=== PATIENT | female | born 1960 | race Caucasian/White ===

== ENCOUNTER → 2016-06-10 | Outpatient (CLI) | payer OTHER ==
--- NOTE | 2016-06-10 09:41 | MM ---
Reason for exam: follow-up at short interval from prior study. Last mammogram was performed 6 months ago. History: Patient is postmenopausal and is nulliparous. Took progesterone for 2 years beginning at age 44. Physical Findings: Nurse did not find any significant physical abnormalities on exam. MG Diagnostic Mammo RT w CAD CC, MLO, and LM view(s) were taken of the right breast. Prior study comparison: December 11, 2015, right breast MG work up mamm w CAD RT. December 02, 2015, bilateral MG screening mammo w CAD. November 28, 2014, bilateral MG screening mammo w CAD. November 21, 2013, bilateral MG diagnostic mammo w CAD GIOVANNY. The breast tissue is heterogeneously dense. This may lower the sensitivity of mammography. The previously seen medial asymmetry not apparent on the current exam. Additional precautionary 6 month follow up recommended. These results were verbally communicated with the patient and result sheet given to the patient on 06/10/16. ASSESSMENT: Probably benign, BI-RAD 3 RECOMMENDATION: Follow-up diagnostic mammogram of both breasts in 6 months. Back on schedule for November 2016.
== END | disposition home or self-care (01) ==
LOC: RADMAMWWP 08:34
PROVIDERS: ATTEND Family Medicine
DX: R92.8 Other abnormal and inconclusive findings on diagnostic imaging of breast (principal)

== ENCOUNTER → 2017-12-27 | Outpatient (CLI) | payer BC ==
--- NOTE | 2017-12-28 13:11 | MM ---
Reason for exam: screening (asymptomatic). Last mammogram was performed 1 year and 1 month ago. History: Patient is postmenopausal and is nulliparous. Took progesterone for 2 years beginning at age 44. Physical Findings: A clinical breast exam by your physician is recommended on an annual basis and results should be correlated with mammographic findings. MG 3D Screening Mammo W/Cad Bilateral CC and MLO view(s) were taken. XCCL view(s) were taken of the right breast. Prior study comparison: December 03, 2016, bilateral MG diagnostic mammo w CAD GIOVANNY. June 10, 2016, right breast MG diagnostic mammo RT w CAD. The breast tissue is extremely dense which could obscure a lesion on mammography. No suspicious abnormality. Stable right upper outer quadrant focal asymmetry. No significant changes when compared with prior studies. ASSESSMENT: Benign, BI-RAD 2 RECOMMENDATION: Routine screening mammogram of both breasts in 1 year.
== END | disposition home or self-care (01) ==
LOC: RADMAMWWP 09:35
PROVIDERS: ATTEND Family Medicine
DX: Z12.31 Encounter for screening mammogram for malignant neoplasm of breast (principal)
CPT/HCPCS: 77063; 77067

== ENCOUNTER 2018-05-06 20:03 | Emergency (ER) | payer BC ==
[2018-05-06 20:09] VITALS: BP 114/82; PULSE 71; RESP 16; TEMP 97.5
[2018-05-06 20:28] LABS: Appearance,Urine Clear (Clear); Bilirubin,Urine Negative (Negative); Blood,Urine Negative (Negative); Color,Urine Colorless; Glucose,Urine (UA) Negative (Negative); Ketones,Urine Negative (Negative); Leukocyte Esterase,Urine Moderate (Negative); Mucus,Urine Rare /hpf; Nitrite,Urine Negative (Negative); PH, Urine 5.5 (5.0-8.0); Protein,Urine Negative (Negative); RBC,Urine <1 /hpf (0-5); Specific Gravity,Urine 1.001 (1.001-1.035); Squamous Epithelial Cell,Urine 1 /hpf (0-4); Urobilinogen,Urine <2.0 mg/dL (<2.0); WBC,Urine 22 /hpf (0-5)
[2018-05-06] MEDS ORDERED: SULFAMETH-TMP DS STARTER PACK 2 TAB BTL PO STA (20:50)
--- NOTE | 2018-05-06 20:52 | ED ---
Female Urogenital HPI - General Chief complaint: Urogenital Stated complaint: Poss UTI or bladder infection Time Seen by Provider: 05/06/18 20:11 Source: patient Mode of arrival: ambulatory Limitations: no limitations - History of Present Illness Initial comments: 58-year-old female who denies past medical history presents today for chief complaint of urinary tract infection. Patient states that she has had since 2 PM dysuria urgency or . She states symptoms are identical to when she's had a bladder infection in the past. Patient denies a fever chills or night sweats. Patient denies any significant abdominal pain nausea or vomiting. Remaining review of system negative, Patient denies any recent vaginal discharge, shortness of breath, chest pain, back pain, abdominal pain, nausea or vomiting, numbness or tingling, dysuria or hematuria, constipation or diarrhea, headaches or visual changes, or any other complaints. - Related Data Home Medications Medication Instructions Recorded Confirmed Sertraline [Zoloft] 100 mg PO DAILY 05/06/18 05/06/18 Previous Rx's Medication Instructions Recorded Sulfamethox-Tmp 800-160Mg [Bactrim 1 tab PO Q12HR 3 Days #6 tab 05/06/18 DS 800-160 mg] Allergies Allergy/AdvReac Type Severity Reaction Status Date / Time No Known Allergies Allergy Verified 05/06/18 20:57 Review of Systems ROS Statement: Those systems with pertinent positive or pertinent negative responses have been documented in the HPI. ROS Other: All systems not noted in ROS Statement are negative. Past Medical History Additional Past Medical History / Comment(s): UTI History of Any Multi-Drug Resistant Organisms: None Reported Past Surgical History: Tonsillectomy Additional Past Surgical History / Comment(s): nodule off left vocal cord. Past Psychological History: No Psychological Hx Reported Smoking Status: Never smoker Past Alcohol Use History: None Reported Past Drug Use History: None Reported General Exam - General Exam Comments Initial Comments: General: The patient is awake and alert, in no distress, and does not appear acutely ill. Eye: Pupils are equal, round and reactive to light, extra-ocular movements are intact. No nystagmus. There is normal conjunctiva bilaterally. No signs of icterus. Cardiovascular: There is a regular rate and rhythm. No murmur, rub or gallop is appreciated. Respiratory: Lungs are clear to auscultation, respirations are non-labored, breath sounds are equal. No wheezes, stridor, rales, or rhonchi. Gastrointestinal: Soft, non-distended, non-tender abdomen without masses or organomegaly noted. There is no rebound or guarding present. No CVA tenderness. Musculoskeletal: Normal ROM, no tenderness. Strength 5/5. Sensation intact. Pulses equal bilaterally 2+. Neurological: A&O x 3. CN II-XII intact, There are no obvious motor or sensory deficits. Coordination appears grossly intact. Speech is normal. Skin: Skin is warm and dry and no rashes or lesions are noted. Psychiatric: Cooperative, appropriate mood & affect, normal judgment. Limitations: no limitations Course Vital Signs 05/06/18 20:05 Temperature 97.5 F L Pulse Rate 71 Respiratory 16 Rate Blood Pressure 114/82 O2 Sat by Pulse 96 Oximetry Medical Decision Making - Medical Decision Making Well-appearing 58-year-old female with no comorbidities presenting for dysuria urgency and frequency. Patient has had similar symptoms the past when she's been diagnosed with urinary tract infection. Urinalysis revealed findings consistent with urinary tract infection. Culture pending. Patient be started on Bactrim and she states has been more the only antibiotics to work in the past. Patient has no CVA tenderness no complaints of flank pain. Patient appears well nontoxic denying constitutional symptoms. At this time I do feel patient is stable for discharge with outpatient follow-up and return for worsening symptoms. Discussed the case with him provider Dr. Barnett prior to patient's discharge. - Lab Data Lab Results 05/06/18 Range/Units 20:14 Urine Color Colorless Urine Appearance Clear (Clear) Urine pH 5.5 (5.0-8.0) Ur Specific [place] 1.001 (1.001-1.035) Urine Protein Negative (Negative) Urine Glucose (UA) Negative (Negative) Urine Ketones Negative (Negative) Urine Blood Negative (Negative) Urine Nitrite Negative (Negative) Urine Bilirubin Negative (Negative) Urine Urobilinogen <2.0 (<2.0) mg/dL Ur Leukocyte Esterase Moderate H (Negative) Urine RBC <1 (0-5) /hpf Urine WBC 22 H (0-5) /hpf Ur Squamous Epith Cells 1 (0-4) /hpf Urine Mucus Rare H (None) /hpf Disposition Clinical Impression: UTI (urinary tract infection) Disposition: HOME SELF-CARE Condition: Good Instructions (If sedation given, give patient instructions): Urinary Tract Infection in Women (ED) Additional Instructions: Please use medication as discussed. Please follow-up with family doctor in the next 2 days of symptoms have not improved. Please return to emergency room if the symptoms increase or worsen or for any other concerns, including back pain or fever. Prescriptions: Sulfamethox-Tmp 800-160Mg [Bactrim DS 800-160 mg] 1 tab PO Q12HR 3 Days #6 tab Is patient prescribed a controlled substance at d/c from ED?: No Referrals: Thomas Kelly MD [Primary Care Provider] - 1-2 days Time of Disposition: 20:51
== END 2018-05-06 20:58 | disposition home or self-care (01) ==
LOC: EC 20:03
DX: N39.0 Urinary tract infection, site not specified (principal); Z79.899 Other long term (current) drug therapy
CPT/HCPCS: 81001; 99283

== ENCOUNTER → 2019-01-06 | Outpatient (CLI) | payer BC ==
--- NOTE | 2019-01-09 08:48 | MM ---
Reason for exam: screening (asymptomatic). Last mammogram was performed 1 year ago. History: Patient is postmenopausal and is nulliparous. Took progesterone for 2 years beginning at age 44. Physical Findings: A clinical breast exam by your physician is recommended on an annual basis and results should be correlated with mammographic findings. MG 3D Screening Mammo W/Cad Bilateral CC, MLO, and XCCL view(s) were taken. Prior study comparison: December 27, 2017, bilateral MG 3d screening mammo w/cad. December 03, 2016, bilateral MG diagnostic mammo w CAD GIOVANNY. The breast tissue is heterogeneously dense. This may lower the sensitivity of mammography. There are benign appearing round calcifications in the right breast. There is no discrete abnormality. ASSESSMENT: Benign, BI-RAD 2 RECOMMENDATION: Routine screening mammogram of both breasts in 1 year.
== END | disposition home or self-care (01) ==
LOC: RADMAMWWP 13:25
PROVIDERS: ATTEND Midwife
DX: Z12.31 Encounter for screening mammogram for malignant neoplasm of breast (principal)
CPT/HCPCS: 77063; 77067

== ENCOUNTER → 2019-01-16 | Outpatient (CLI) | payer BC | END | disposition home or self-care (01) | LOC: LABWHC1 14:21 | PROVIDERS: ATTEND Orthopaedic Surgery | DX: E55.9 Vitamin D deficiency, unspecified (principal); M79.671 Pain in right foot | CPT/HCPCS: 36415; 82306 ==

== ENCOUNTER 2019-03-07 13:46 | Emergency (ER) | payer BC ==
[2019-03-07 13:53] VITALS: RESP 18; TEMP 97.6
[2019-03-07] MEDS ORDERED: SODIUM CHLORIDE 0.9% 500 ML 500 ML IV STA (14:51)
[2019-03-07] MEDS ORDERED: KETOROLAC 30 MG/ML 1 ML VIAL IVP STA (14:51)
--- NOTE | 2019-03-07 15:24 | XR ---
EXAMINATION TYPE: XR chest 2V DATE OF EXAM: 03/07/2019 COMPARISON: Prior chest x-ray 10/06/2009 HISTORY: Cough and hypotension, vomiting TECHNIQUE: Frontal and lateral views of the chest are obtained. FINDINGS: There is no focal air space opacity, pleural effusion, or pneumothorax seen. The cardiac silhouette size is within normal limits. The osseous structures are intact. IMPRESSION: No acute cardiopulmonary process.
[2019-03-07] MEDS ORDERED: ONDANSETRON 4 MG ODT STARTER PACK 2 TAB BTL PO STA (15:47)
--- NOTE | 2019-03-07 15:47 | ED ---
Nausea/Vomiting/Diarrhea HPI - General Chief complaint: Nausea/Vomiting/Diarrhea Stated complaint: hypotension Time Seen by Provider: 03/07/19 14:23 Source: EMS Mode of arrival: EMS Limitations: no limitations - History of Present Illness Initial comments: Patient is a 59-year-old female presenting to emergency Department with complaints of acute onset nausea, vomiting and body aches started this morning. Patient states she does have a very mild cough as well. Patient denies fever, abdominal pain. She states she went to urgent care prior to the ER however they sent her here because her blood pressure was really low. Patient states she normally has low blood pressure but they called and EMS for her anyway. Patient was given half a liter bolus in the EMS prior to arrival. She denies chest pain, shortness of breath, headache. She has no other complaints at this time. Upon arrival to ER, her bp 111/65, rest of vitals were normal. - Related Data Home Medications Medication Instructions Recorded Confirmed Sertraline [Zoloft] 100 mg PO DAILY 05/06/18 05/06/18 Previous Rx's Medication Instructions Recorded Sulfamethox-Tmp 800-160Mg [Bactrim 1 tab PO Q12HR 3 Days #6 tab 05/06/18 DS 800-160 mg] Allergies Allergy/AdvReac Type Severity Reaction Status Date / Time No Known Allergies Allergy Verified 05/06/18 20:57 Review of Systems ROS Statement: Those systems with pertinent positive or pertinent negative responses have been documented in the HPI. ROS Other: All systems not noted in ROS Statement are negative. Past Medical History Additional Past Medical History / Comment(s): UTI History of Any Multi-Drug Resistant Organisms: None Reported Past Surgical History: Tonsillectomy Additional Past Surgical History / Comment(s): nodule off left vocal cord. Past Psychological History: No Psychological Hx Reported Smoking Status: Never smoker Past Alcohol Use History: None Reported Past Drug Use History: None Reported General Exam - General Exam Comments Initial Comments: GENERAL: Well-appearing, well-nourished and in no acute distress. HEAD: Atraumatic, normocephalic. EYES: Pupils equal round and reactive to light, extraocular movements intact, sclera anicteric, conjunctiva are normal. ENT: TMs normal, nares patent, oropharynx clear without exudates. Moist mucous membranes. NECK: Normal range of motion, supple without lymphadenopathy or JVD. LUNGS: Breath sounds clear to auscultation bilaterally and equal. No wheezes rales or rhonchi. HEART: Regular rate and rhythm without murmurs, rubs or gallops. ABDOMEN: Soft, nontender, normoactive bowel sounds. No guarding, no rebound. No masses appreciated. EXTREMITIES: Normal range of motion, no pitting or edema. No clubbing or cyanosis. NEUROLOGICAL: Normal speech, normal gait. PSYCH: Normal mood, normal affect. SKIN: Warm, Dry, normal turgor, no rashes or lesions noted. Limitations: no limitations Course Vital Signs 03/07/19 03/07/19 13:47 15:59 Temperature 97.6 F Pulse Rate 67 85 Respiratory 18 18 Rate Blood Pressure 111/65 115/72 O2 Sat by Pulse 98 98 Oximetry Medical Decision Making - Medical Decision Making Patient is 59-year-old female presenting with acute onset of nausea and vomiting, body aches this morning. Patient was sent by urgent care for having low blood pressure however states that she normally has low blood pressure. Upon arrival here her blood pressure was normal. Patient was given a total of a liter of fluids. Influenza is negative. Chest x-ray shows no acute abnormalities. Patient was given Toradol. She does report some improvement in her symptoms. I discussed with patient this is most likely gastroenteritis versus the flu. She will continue with ibuprofen as needed for body aches. She'll also be sent home with Zofran to use as needed for nausea. Work note given. She is in agreement this plan of care. Return parameters were discussed with the patient she verbalized understanding. Her vital signs have remained stable. - Lab Data Lab Results 03/07/19 Range/Units 15:05 Influenza Type A RNA Not Detected (Not Detectd) Influenza Type B (PCR) Not Detected (Not Detectd) Disposition Clinical Impression: Nausea & vomiting, Body aches Disposition: HOME SELF-CARE Condition: Stable Instructions (If sedation given, give patient instructions): Acute Nausea and Vomiting (ED) Additional Instructions: Please return to the Emergency Department if symptoms worsen or any other concerns. Use Zofran as needed for additional nausea. Continue Tylenol or Motrin for body aches. Is patient prescribed a controlled substance at d/c from ED?: No Referrals: Thomas Kelly MD [Primary Care Provider] - 1-2 days
[2019-03-07 16:00] VITALS: BP 115/72; PULSE 85
== END 2019-03-07 15:59 | disposition home or self-care (01) ==
LOC: EC 13:46
DX: R11.2 Nausea with vomiting, unspecified (principal); R52 Pain, unspecified; R05 Cough
CPT/HCPCS: 87502; 71046; 99284; 96374; J1885; S0119

== ENCOUNTER → 2020-03-19 | Outpatient (CLI) | payer BC ==
--- NOTE | 2020-03-20 10:55 | MM ---
Reason for exam: screening (asymptomatic). Last mammogram was performed 1 year and 2 months ago. History: Patient is postmenopausal and is nulliparous. Took progesterone for 2 years beginning at age 44. Physical Findings: A clinical breast exam by your physician is recommended on an annual basis and results should be correlated with mammographic findings. MG 3D Screening Mammo W/Cad Bilateral CC and MLO view(s) were taken. Prior study comparison: January 06, 2019, bilateral MG 3d screening mammo w/cad. December 27, 2017, bilateral MG 3d screening mammo w/cad. The breast tissue is heterogeneously dense. This may lower the sensitivity of mammography. No significant changes when compared with prior studies. ASSESSMENT: Benign, BI-RAD 2 RECOMMENDATION: Routine screening mammogram of both breasts in 1 year.
== END | disposition home or self-care (01) ==
LOC: RADMAMWWP 10:08
PROVIDERS: ATTEND Family Medicine
DX: Z12.31 Encounter for screening mammogram for malignant neoplasm of breast (principal)
CPT/HCPCS: 77063; 77067

== ENCOUNTER 2020-10-21 19:25 | Emergency (ER) | payer BC ==
[2020-10-21 19:30] VITALS: BP 160/94; PULSE 74; RESP 19; TEMP 98
[2020-10-21] MEDS ORDERED: DIAZEPAM 5 MG/ML 2 ML INJ IM STA (19:56)
[2020-10-21] MEDS ORDERED: ACETAMINOPHEN TAB 500 MG TAB PO STA (19:56)
[2020-10-21] MEDS ORDERED: LIDOCAINE 5% PATCH TOPICAL STA (19:56)
--- NOTE | 2020-10-21 19:56 | ED ---
Back Pain HPI - General Chief Complaint: Back Pain/Injury Stated Complaint: Back Spasms Time Seen by Provider: 10/21/20 19:39 Source: patient Limitations: no limitations - History of Present Illness Initial Comments: 60-year-old female presented emergency Department with a chief complaint of back spasms. Patient reports that began early this morning and she feels a pulling sensation in the lower back. Patient reports she has history of these but they occur intermittently and they do not last this long. States it is worse whenever she is laying down or any specific movements can elicit the spasms. Patient reports performing some scratches but they do not alleviate the symptoms. Denies taking medication to alleviate the symptoms. Denies any injury to her back. Denies any saddle anesthesia, urinary retention with overflow or bowel incontinence. - Related Data Home Medications Medication Instructions Recorded Confirmed Sertraline [Zoloft] 100 mg PO DAILY 05/06/18 05/06/18 Previous Rx's Medication Instructions Recorded Sulfamethox-Tmp 800-160Mg [Bactrim 1 tab PO Q12HR 3 Days #6 tab 05/06/18 DS 800-160 mg] Cyclobenzaprine [Flexeril] 10 mg PO TID PRN #15 tab 10/21/20 Allergies Allergy/AdvReac Type Severity Reaction Status Date / Time No Known Allergies Allergy Verified 10/21/20 19:27 Review of Systems ROS Statement: Those systems with pertinent positive or pertinent negative responses have been documented in the HPI. ROS Other: All systems not noted in ROS Statement are negative. Past Medical History Additional Past Medical History / Comment(s): UTI History of Any Multi-Drug Resistant Organisms: None Reported Past Surgical History: Tonsillectomy Additional Past Surgical History / Comment(s): nodule off left vocal cord. Past Psychological History: No Psychological Hx Reported Smoking Status: Never smoker Past Alcohol Use History: None Reported Past Drug Use History: None Reported General Exam Limitations: no limitations General appearance: alert, in no apparent distress Head exam: Present: atraumatic, normocephalic, normal inspection Eye exam: Present: normal appearance Pupils: Present: normal accommodation ENT exam: Present: normal exam, normal oropharynx, mucous membranes moist Neck exam: Present: normal inspection, full ROM. Absent: tenderness Respiratory exam: Present: normal lung sounds bilaterally. Absent: respiratory distress, wheezes, rales, rhonchi, stridor Cardiovascular Exam: Present: regular rate, normal rhythm, normal heart sounds. Absent: systolic murmur GI/Abdominal exam: Present: soft. Absent: distended, tenderness, guarding, rebound Extremities exam: Present: normal inspection, full ROM, normal capillary refill. Absent: tenderness Back exam: Present: normal inspection, full ROM, muscle spasm, paraspinal tenderness (Paraspinal paraspinal tenderness in the lumbosacral region). Absent: tenderness, CVA tenderness (R), CVA tenderness (L), vertebral tenderness Neurological exam: Present: alert, oriented X3, normal gait Psychiatric exam: Present: normal affect, normal mood Skin exam: Present: warm, dry, intact, normal color Course Vital Signs 10/21/20 19:27 Temperature 98 F Pulse Rate 74 Respiratory 19 Rate Blood Pressure 160/94 O2 Sat by Pulse 94 L Oximetry Medical Decision Making - Medical Decision Making 60-year-old female presents emergency Department with a chief complaint of back spasms. On physical examination, tenderness in the lumbosacral region, paraspinal but not mid vertebral. No concern for cauda equina. No injury to the back. Patient was given Valium and a Lidoderm patch. On reevaluation, she reports improvement in his symptoms. I advised to take Tylenol for pain. She i s ALLERGIC to NSAIDs due to IBS. I will give a prescription for Flexeril. Return parameters were discussed with patient is understanding and agreeable. Orthopedic follow-up. Disposition Clinical Impression: Back muscle spasm Disposition: HOME SELF-CARE Condition: Stable Instructions (If sedation given, give patient instructions): Acute Low Back Pain (ED), Lower Back Exercises (ED) Additional Instructions: Please return to the Emergency Department if symptoms worsen or any other concerns. Prescriptions: Cyclobenzaprine [Flexeril] 10 mg PO TID PRN #15 tab PRN Reason: Muscle Spasm Is patient prescribed a controlled substance at d/c from ED?: No Referrals: Thomas Kelly MD [Primary Care Provider] - 1-2 days Yash Grijalva DO [Doctor of Osteopathic Medicine] - 1-2 days Time of Disposition: 21:19
[2020-10-21] MEDS ORDERED: CYCLOBENZAPRINE 10 MG TAB PO STA (21:18)
== END 2020-10-21 21:27 | disposition home or self-care (01) ==
LOC: EC 19:25
DX: M62.830 Muscle spasm of back (principal); Z87.440 Personal history of urinary (tract) infections
CPT/HCPCS: 99283; 96372; J3360